=== PATIENT | female | born 1990 | race Caucasian/White ===

== ENCOUNTER 2018-09-30 07:26 | Emergency (ER) | payer BC ==
--- NOTE | 2018-09-30 07:46 | ERPHSYRPT ---
- History of Present Illness Time Seen by Provider: 09/30/18 07:40 Source: patient, family Exam Limitations: no limitations Physician History: 28 y/o obese white female 14 weeks presents with vaginal spotting this am with a single clot. pt seen by Dr. Moran yesterday. labs drawn. no ultrasound obtained. pt denies n/v/d. pt denies abd pain. pt denies cp and denies soa. Timing/Duration: today Activites at Onset: sexual activity (2 days ago) Quality: other (no pain) Pain Radiation: none Severity of Pain-Max: none Severity of Pain-Current: none Sexual intercourse history: non-contributory Modifying Factors: Improves With: nothing Associated Symptoms: vaginal discharge (spotting blood and clot) Allergies/Adverse Reactions: No Known Drug Allergies Allergy (Unverified 09/30/18 07:47) Home Medications: Vits W-Ca,Fe,FA(<1Mg) [] 1 each PO DAILY 09/30/18 [History] - Review of Systems Constitutional: No Symptoms Eyes: No Symptoms Ears, Nose, & Throat: No Symptoms Respiratory: No Symptoms Cardiac: No Symptoms Abdominal/Gastrointestinal: No Symptoms Genitourinary Symptoms: Vaginal Bleeding Musculoskeletal: No Symptoms Skin: No Symptoms Neurological: No Symptoms Psychological: No Symptoms Endocrine: No Symptoms Hematologic/Lymphatic: No Symptoms Immunological/Allergic: No Symptoms All Other Systems: Reviewed and Negative - Past Medical History Neurological History: No Pertinent History ENT History: No Pertinent History Cardiac History: No Pertinent History Respiratory History: No Pertinent History Endocrine Medical History: No Pertinent History Musculoskeletal History: No Pertinent History GI Medical History: No Pertinent History History: No Pertinent History Psycho-Social History: No Pertinent History Female Reproductive Disorders: No Pertinent History - Past Surgical History Neuro Surgical History: No Pertinent History Cardiac: No Pertinent History Respiratory: No Pertinent History Gastrointestinal: No Pertinent History Genitourinary: No Pertinent History Musculoskeletal: No Pertinent History Female Surgical History: No Pertinent History - Nursing Vital Signs Nursing Vital Signs: Initial Vital Signs Temperature 98.0 F 09/30/18 07:33 Pulse Rate 75 09/30/18 07:33 Respiratory Rate 20 09/30/18 07:33 Blood Pressure 127/70 09/30/18 07:33 O2 Sat by Pulse Oximetry 97 09/30/18 07:33 Pain Scale Pain Intensity 0 - Physical Exam General Appearance: no apparent distress, alert, anxiety Eye Exam: PERRL/EOMI, eyes nml inspection Ears, Nose, Throat Exam: normal ENT inspection, moist mucous membranes Neck Exam: normal inspection, non-tender, supple, full range of motion Respiratory Exam: normal breath sounds, lungs clear, airway intact, No chest tenderness, No respiratory distress Cardiovascular Exam: regular rate/rhythm, normal heart sounds, normal peripheral pulses Gastrointestinal/Abdomen Exam: soft, normal bowel sounds, other (fht 148), No tenderness Pelvic Exam: not done Rectal Exam: not done Extremity Exam: normal inspection, normal range of motion, pelvis stable Neurologic Exam: alert, oriented x 3, cooperative, letter of credit clerk II-XII nml as tested Skin Exam: normal color, warm, dry Lymphatic Exam: No adenopathy SpO2 Interpretation: normal O2 Delivery: Room Air Ordered Tests: Active Orders 24 hr Category Date Time Status Heart Tones-ED STAT Care 09/30/18 08:02 Active OB >14 WKS 1st GESTATION [US] Stat Exams 09/30/18 07:47 Completed CBC W DIFF Stat Lab 09/30/18 08:10 Completed CMP Stat Lab 09/30/18 08:10 Completed HCG, Quantitative (Inhouse) Stat Lab 09/30/18 08:10 Received UA W/RFX UR CULTURE Stat Lab 09/30/18 07:47 Uncollected Lab/Rad Data: Laboratory Result Diagrams 09/30/18 08:10 09/30/18 08:10 Laboratory Results 09/30/18 09/30/18 Range/Units 08:10 08:10 WBC 7.7 (4.0-10.5) K/mm3 RBC 4.49 (4.1-5.4) M/mm3 Hgb 9.9 L (12.0-16.0) gm/dl Hct 32.0 L (35-47) % MCV 71.3 L (78-100) fl MCH 22.0 L (26-32) pg MCHC 30.9 L (32-36) g/dl RDW 18.3 H (11.5-14.0) % Plt Count 259 (150-450) K/mm3 MPV 11.3 H (6-9.5) fl Gran % 74.2 H (36.0-66.0) % Eos # (Auto) 0.05 (0-0.5) Absolute Lymphs (auto) 1.43 (1.0-4.6) Absolute Monos (auto) 0.49 (0.0-1.3) Lymphocytes % 18.5 L (24.0-44.0) % Monocytes % 6.4 (0.0-12.0) % Eosinophils % 0.6 (0.00-5.0) % Basophils % 0.3 (0.0-0.4) % Absolute Granulocytes 5.72 (1.4-6.9) Basophils # 0.02 (0-0.4) Sodium 138 (137-145) mmol/L Potassium 3.8 (3.5-5.1) mmol/L Chloride 107 (98-107) mmol/L Carbon Dioxide 23 (22-30) mmol/L Anion Gap 12.2 (5-15) MEQ/L BUN 7 (7-17) mg/dL Creatinine 0.51 L (0.52-1.04) mg/dL Estimated GFR > 60.0 ML/MIN Glucose 91 (74-106) mg/dL Calcium 9.0 (8.4-10.2) mg/dL Total Bilirubin 0.30 (0.2-1.3) mg/dL AST 14 (14-36) U/L ALT 16 (0-35) U/L Alkaline Phosphatase 49 (38-126) U/L Serum Total Protein 7.2 (6.3-8.2) g/dL Albumin 3.8 (3.5-5.0) g/dL Slides for Path Review YES - Progress Progress: re-examined Air Movement: good Progress Note: 09/30/18 09:11 u/s-single live intrauterine fetus. 13 week 1 day gestation Counseled pt/family regarding: lab results, diagnosis, need for follow-up, rad results - Departure Departure Disposition: Home Clinical Impression: Vaginal bleeding during , UTI (urinary tract infection) Condition: Stable Critical Care Time: No Additional Instructions: drink plenty of fluids. follow up with ob doctor today. Prescriptions: Cephalexin Mh 500 mg [Keflex 500 mg] 500 mg PO TID #21 capsule
[2018-09-30 08:42] LABS: BASOPHIL % 0.3 % (0.0-0.4); Basophil (Absolute #) 0.02 (0-0.4); Eosinophil % 0.6 % (0.00-5.0); Eosinophil (Absolute #) 0.05 (0-0.5); Granulocyte Absolute (ANC) 5.72 (1.4-6.9); Granulocytes % 74.2 % (36.0-66.0); Hemoglobin 9.9 gm/dl (12.0-16.0); Lymphocyte (Absolute #) 1.43 (1.0-4.6); Lymphocytes % 18.5 % (24.0-44.0); Mean Cell Volume 71.3 fl (78-100); Mean Corpuscular Hgb Concent. 30.9 g/dl (32-36); Mean Platelet Volume 11.3 fl (6-9.5); Monocyte (Absolute #) 0.49 (0.0-1.3); Monocytes % 6.4 % (0.0-12.0); Platelet Count 259 K/mm3 (150-450); Red Blood Count 4.49 M/mm3 (4.1-5.4); Red Cell Distribution Width 18.3 % (11.5-14.0); White Blood Count 7.7 K/mm3 (4.0-10.5)
[2018-09-30 08:46] LABS: ALBUMIN 3.8 g/dL (3.5-5.0); ALKALINE PHOSPHATASE 49 U/L (38-126); ANION GAP 12.2 MEQ/L (5-15); BLOOD UREA NITROGEN 7 mg/dL (7-17); CHLORIDE 107 mmol/L (98-107); Carbon Dioxide 23 mmol/L (22-30); Creatinine 1 0.51 mg/dL (0.52-1.04); Glucose 91 mg/dL (74-106); Potassium 3.8 mmol/L (3.5-5.1); SGOT/AST 14 U/L (14-36); SGPT/ALT 16 U/L (0-35); SODIUM 138 mmol/L (137-145); Total Protein 7.2 g/dL (6.3-8.2)
--- NOTE | 2018-09-30 09:03 | XRAY ---
Indication: Vaginal bleeding. 14 weeks . Two-dimensional transabdominal early OB ultrasound performed. Comparison: None There is a single viable intrauterine with mean crown-rump length measuring 6.79 cm corresponding to 13 weeks 1 day. heart rate 155 BPM. Inferiorly there is a small 2.3 x 0.5 x 1.8 cm subchorionic hemorrhage near the os of the cervix. Left and right ovaries appear sonographically unremarkable. No suspicious adnexal mass or free fluid. Impression: Single viable intrauterine measuring 13 weeks 1 day. Expected date confinement is April 04, 2019. Small subchorionic hemorrhage as detailed.
[2018-09-30 09:23] LABS: Appearance CLEAR (CLEAR); Bilirubin NEGATIVE (NEGATIVE); Blood LARGE Ery/ul (0-5); Glucose NEGATIVE (NEGATIVE); Ketones NEGATIVE (NEGATIVE); Leukocyte Esterase TRACE (NEGATIVE); Nitrite NEGATIVE (NEGATIVE); Protein,Urine Dip NEGATIVE (Negative); Specific Gravity 1.004 (1.005-1.025); Urobilinogen NEGATIVE mg/dL (0-1)
[2018-09-30 09:26] LABS: Bacteria FEW /HPF (NEGATIVE)
[2018-09-30 09:28] VITALS: BP 120/74; PULSE 72; O2SAT 100
== END 2018-09-30 09:27 | disposition home or self-care (01) ==
LOC: ED 07:26
DX: O20.9 Hemorrhage in early pregnancy, unspecified (principal); Z3A.14 14 weeks gestation of pregnancy; O23.42 Unspecified infection of urinary tract in pregnancy, second trimester
CPT/HCPCS: 36415; 76805; 80053; 81001; 84702; 85025; 87086; 99284

== ENCOUNTER 2019-02-18 19:37 | Observation (INO) | payer BC ==
[2019-02-18 20:02] LABS: Appearance CLOUDY (CLEAR); Bacteria RARE /HPF (NEGATIVE); Bilirubin SMALL (NEGATIVE); Blood NEGATIVE Ery/ul (0-5); Epithelial Cells FEW /HPF (FEW); Glucose NEGATIVE (NEGATIVE); Ketones SMALL (NEGATIVE); Leukocyte Esterase LARGE (NEGATIVE); Mucus SLIGHT /HPF (NEGATIVE); Nitrite NEGATIVE (NEGATIVE); Protein,Urine Dip 30 (Negative); RBC 0-2 /HPF (0-2); Specific Gravity 1.031 (1.005-1.025); Urobilinogen 2 mg/dL (0-1); WBC 26-50 /HPF (0-5)
[2019-02-18 20:11] LABS: Amphetamine,Urine NEGATIVE (NEGATIVE); Barbiturate,Urine NEGATIVE (NEGATIVE); Benzodiazepine,Urine NEGATIVE (NEGATIVE); Cocaine,Urine NEGATIVE (NEGATIVE); Methadone,Urine NEGATIVE (NEGATIVE); Opiate,Urine NEGATIVE (NEGATIVE); PCP,Urine NEGATIVE (NEGATIVE); THC,Urine NEGATIVE (NEGATIVE)
[2019-02-18] MEDS ORDERED: Lactated Ringers 1,000 ML IV ONE (21:15)
[2019-02-18] MEDS: Lactated Ringers 1,000 ML IV SCH (21:35)
[2019-02-18 21:46] LABS: Absolute Neutrophil Ct (ANC) 7.55 (1.4-6.9); BASOPHIL % 0.2 % (0.0-0.4); Basophil (Absolute #) 0.02 (0-0.4); Eosinophil % 0.3 % (0.00-5.0); Eosinophil (Absolute #) 0.03 (0-0.5); Hematocrit 33.8 % (35-47); Hemoglobin 11.1 gm/dl (12.0-16.0); Lymphocyte (Absolute #) 0.77 (1.0-4.6); Lymphocytes % 8.7 % (24.0-44.0); Mean Cell Volume 86.9 fl (78-100); Mean Corpuscular Hemoglobin 28.5 pg (26-32); Mean Corpuscular Hgb Concent. 32.8 g/dl (32-36); Mean Platelet Volume 10.2 fl (6-9.5); Monocyte (Absolute #) 0.47 (0.0-1.3); Monocytes % 5.3 % (0.0-12.0); Neutrophil % 85.5 % (36.0-66.0); Platelet Count 204 K/mm3 (150-450); Red Blood Count 3.89 M/mm3 (4.1-5.4); Red Cell Distribution Width 14.3 % (11.5-14.0); White Blood Count 8.8 K/mm3 (4.0-10.5)
[2019-02-18 21:57] LABS: ALBUMIN 3.5 g/dL (3.5-5.0); ALKALINE PHOSPHATASE 87 U/L (38-126); ANION GAP 13.2 MEQ/L (5-15); BLOOD UREA NITROGEN 8 mg/dL (7-17); CHLORIDE 104 mmol/L (98-107); Calcium 9.3 mg/dL (8.4-10.2); Carbon Dioxide 22 mmol/L (22-30); Creatinine 1 0.38 mg/dL (0.52-1.04); Glucose 92 mg/dL (74-106); Potassium 3.7 mmol/L (3.5-5.1); SGOT/AST 21 U/L (14-36); SGPT/ALT 15 U/L (0-35); SODIUM 136 mmol/L (137-145); Total Protein 7.1 g/dL (6.3-8.2)
[2019-02-19] MEDS: Lactated Ringers 1,000 ML IV SCH (01:24)
[2019-02-19] MEDS ORDERED: TYLENOL 325 MG PO ONE (04:19)
[2019-02-19 10:08] VITALS: BP 119/74; PULSE 75; O2SAT 97
== END 2019-02-19 10:00 | disposition home or self-care (01) ==
LOC: OB 19:37
PROVIDERS: ADMIT Family Medicine; ATTEND Family Medicine
DX: Z34.03 Encounter for supervision of normal first pregnancy, third trimester (principal); R19.7 Diarrhea, unspecified
CPT/HCPCS: 36415; 80053; 80307; 81001; 85025; 87086; G0378; A9270-GY

== ENCOUNTER 2019-03-20 10:30 | Inpatient (IN) | payer BC ==
[2019-03-20 14:09] LABS: Amphetamine,Urine NEGATIVE (NEGATIVE); Barbiturate,Urine NEGATIVE (NEGATIVE); Benzodiazepine,Urine NEGATIVE (NEGATIVE); Cocaine,Urine NEGATIVE (NEGATIVE); Methadone,Urine NEGATIVE (NEGATIVE); Opiate,Urine NEGATIVE (NEGATIVE); PCP,Urine NEGATIVE (NEGATIVE); THC,Urine NEGATIVE (NEGATIVE)
[2019-03-20 14:18] LABS: Absolute Neutrophil Ct (ANC) 5.33 (1.4-6.9); BASOPHIL % 0.3 % (0.0-0.4); Basophil (Absolute #) 0.02 (0-0.4); Eosinophil % 1.1 % (0.00-5.0); Eosinophil (Absolute #) 0.08 (0-0.5); Hematocrit 33.7 % (35-47); Hemoglobin 10.9 gm/dl (12.0-16.0); Lymphocyte (Absolute #) 1.35 (1.0-4.6); Lymphocytes % 18.4 % (24.0-44.0); Mean Cell Volume 86.6 fl (78-100); Mean Corpuscular Hgb Concent. 32.3 g/dl (32-36); Mean Platelet Volume 10.8 fl (6-9.5); Monocyte (Absolute #) 0.54 (0.0-1.3); Monocytes % 7.4 % (0.0-12.0); Neutrophil % 72.8 % (36.0-66.0); Platelet Count 215 K/mm3 (150-450); Red Blood Count 3.89 M/mm3 (4.1-5.4); Red Cell Distribution Width 14.2 % (11.5-14.0); White Blood Count 7.3 K/mm3 (4.0-10.5)
[2019-03-20 14:29] LABS: ALBUMIN 3.2 g/dL (3.5-5.0); ALKALINE PHOSPHATASE 104 U/L (38-126); ANION GAP 9.1 MEQ/L (5-15); BLOOD UREA NITROGEN 5 mg/dL (7-17); CHLORIDE 108 mmol/L (98-107); Carbon Dioxide 25 mmol/L (22-30); Creatinine 1 0.44 mg/dL (0.52-1.04); Glucose 93 mg/dL (74-106); Potassium 4.2 mmol/L (3.5-5.1); SGOT/AST 20 U/L (14-36); SGPT/ALT 14 U/L (0-35); SODIUM 138 mmol/L (137-145); Total Protein 6.6 g/dL (6.3-8.2)
[2019-03-20] MEDS ORDERED: TRANDATE 20 MG/5 ML SYRINGE IV ONE (15:12)
[2019-03-20] MEDS ORDERED: Lactated Ringers 1,000 ML IV SCH ×2 (15:30→18:30)
[2019-03-20 16:22] LABS: INR 0.96 (0.8-3.0); PROTIME 10.8 SECONDS (9.95-12.35)
[2019-03-20 16:25] LABS: PTT 25.5 SECONDS (25.3-37.0)
[2019-03-20 16:32] LABS: Appearance CLEAR (CLEAR); Bilirubin NEGATIVE (NEGATIVE); Blood NEGATIVE Ery/ul (0-5); Glucose NEGATIVE (NEGATIVE); Ketones NEGATIVE (NEGATIVE); Leukocyte Esterase SMALL (NEGATIVE); Nitrite NEGATIVE (NEGATIVE); Protein,Urine Dip NEGATIVE (Negative); Specific Gravity 1.006 (1.005-1.025); Urobilinogen NEGATIVE mg/dL (0-1); WBC 0-2 /HPF (0-5)
[2019-03-20] MEDS: Magnesium Sulfate 40 Gm/1000 Ml H2O Premix*** 1,000 ML IV SCH (16:49)
[2019-03-20] MEDS ORDERED: Zofran 4 MG/2 ML VIAL IV PRN (18:05)
[2019-03-20] MEDS ORDERED: TYLENOL EXTRA STRENGTH 500 MG PO PRN (18:05)
[2019-03-20] MEDS ORDERED: OMNIPEN 2 GM / NACL 100ML 100 ML IV ONE (18:05)
[2019-03-20] MEDS ORDERED: BRETHINE 1 MG/ML SQ PRN (18:05)
[2019-03-20] MEDS ORDERED: PITOCIN 30 UNITS/ LR 500 ML 500 ML IV SCH ×2 (18:30)
[2019-03-20] MEDS ORDERED: TRANDATE 20 MG/5 ML SYRINGE IV PRN (19:30)
[2019-03-20] MEDS: OMNIPEN 1GM / NaCl 100ML 100 ML IV SCH (21:56)
[2019-03-20] MEDS ORDERED: OB EPIDURAL NAROPIN/SUFENTANIL IN NACL EPIDURAL PRN (22:30)
[2019-03-21] MEDS: OMNIPEN 1GM / NaCl 100ML 100 ML IV SCH (02:08)
[2019-03-21] MEDS ORDERED: XYLOCAINE 1% HCL 20 ML MDV ONE (03:39)
[2019-03-21] MEDS ORDERED: APRESOLINE 20 MG/ML INJ IV ONE ×2 (03:46→04:17)
[2019-03-21] MEDS ORDERED: MOTRIN 400 MG PO PRN (04:56)
[2019-03-21] MEDS ORDERED: CORTISONE 1% CREAM TP PRN (04:56)
[2019-03-21] MEDS ORDERED: NORCO 5/325 MG PO PRN (04:56)
[2019-03-21] MEDS ORDERED: Mylicon 80MG PO PRN (04:56)
[2019-03-21] MEDS ORDERED: LANSINOH 40 GM TOP PRN (04:56)
[2019-03-21] MEDS ORDERED: Dermoplast Spray TP PRN (04:56)
[2019-03-21] MEDS ORDERED: TUCKS TP PRN (04:56)
[2019-03-21] MEDS ORDERED: Anucort-HC SUPPOSITORY PR PRN (04:56)
[2019-03-21] MEDS ORDERED: Dulcolax 10 MG SUPP PR PRN (04:56)
[2019-03-21] MEDS ORDERED: TRANDATE 100 MG/20 ML MDV FOR DRIP IV PRN (07:15)
[2019-03-21] MEDS: FERREX 150 PO SCH (10:37)
[2019-03-21] MEDS: Colace 100 MG PO SCH ×2 (10:37→21:15)
[2019-03-21] MEDS: Magnesium Sulfate 40 Gm/1000 Ml H2O Premix*** 1,000 ML IV SCH (11:36)
[2019-03-21 14:32] VITALS: O2SAT 98
[2019-03-22 06:29] LABS: Absolute Neutrophil Ct (ANC) 5.16 (1.4-6.9); BASOPHIL % 0.4 % (0.0-0.4); Basophil (Absolute #) 0.03 (0-0.4); Eosinophil % 0.9 % (0.00-5.0); Eosinophil (Absolute #) 0.07 (0-0.5); Hemoglobin 8.5 gm/dl (12.0-16.0); Lymphocyte (Absolute #) 1.96 (1.0-4.6); Lymphocytes % 24.8 % (24.0-44.0); Mean Cell Volume 89.1 fl (78-100); Mean Corpuscular Hemoglobin 28.1 pg (26-32); Mean Corpuscular Hgb Concent. 31.5 g/dl (32-36); Mean Platelet Volume 11.1 fl (6-9.5); Monocyte (Absolute #) 0.68 (0.0-1.3); Monocytes % 8.6 % (0.0-12.0); Neutrophil % 65.3 % (36.0-66.0); Platelet Count 216 K/mm3 (150-450); Red Blood Count 3.03 M/mm3 (4.1-5.4); Red Cell Distribution Width 14.8 % (11.5-14.0); White Blood Count 7.9 K/mm3 (4.0-10.5)
[2019-03-22] MEDS: FERREX 150 PO SCH (09:35)
[2019-03-22] MEDS: Colace 100 MG PO SCH ×2 (09:35→21:13)
--- NOTE | 2019-03-23 09:33 | PCM.DS ---
Discharge Summary Date of Admission: 03/20/19 18:00 Admitting Physician: CHANI SWIFT Consults: Consults on Case 03/20/19 15:27 Notify Physician Primary Care Provider: CHANI SWIFT Allergies Allergies No Known Drug Allergies Allergy (Unverified 02/18/19 21:18) Hospital Summary - Hospital Course Hospital Course: Pt came in as 29 yo at 38w 4d after having elevated BP in office. Was found to have bp up to 180s systolic so was started on MgSO4 IV and labor was induced via AROM. FSE was placed by Dr. Henson after unsuccessful attempt by me. Clear fluid. Pt GBS +; ampicillin given IV. She delivered a 6lb 2oz female easily, , just prior to my arrival on the unit. Placental delivery without complication. Pt had a second degree vaginal laceration that was repaired. She has not been taking any pain meds. She was on magnesium x 24h after delivery; BP have all been under 160 systolic since. She has had some in the 140s-150s range, so I am starting her on nifedipine XL 30mg daily and plan to send her home later today. F/uw ith me in 1 week. - Vitals & Intake/Output Vital Signs: Vital Signs Temperature 97.6 F 03/23/19 08:00 Pulse Rate 75 03/23/19 08:00 Respiratory Rate 18 03/23/19 08:00 Blood Pressure 155/99 03/23/19 08:00 O2 Sat by Pulse Oximetry 98 03/22/19 02:00 Intake & Output: Intake & Output 03/20/19 03/21/19 03/22/19 03/23/19 11:59 11:59 11:59 11:59 Intake Total 100 1150 1940 Output Total 4125 1600 Balance 100 -2975 340 Weight 160.118 kg - Lab Result Diagrams: 03/22/19 05:15 03/20/19 14:16 - Procedures and Test Procedures and Tests throughout Hospitalization: Therapy Orders & Screens 03/21/19 03:45 Standby Routine Comment: Diagnosis: Elevated BP Discharge Exam General Appearance: no apparent distress, alert, obese Neurologic Exam: oriented x 3, cooperative, other (pat refl negligible bilat. No clonus.) Eye Exam: eyes nml inspection Ears, Nose, Throat Exam: moist mucous membranes Respiratory Exam: normal breath sounds, lungs clear, No crackles/rales, No rhonchi, No wheezing Cardiovascular Exam: regular rate/rhythm, normal heart sounds, No murmur Gastrointestinal/Abdomen Exam: soft, normal bowel sounds, other (fundus firm under umbilicus), No tenderness, No distention, No mass, No guarding, No rebound Back Exam: normal inspection, No rash Extremity Exam: normal inspection, No pedal edema, No swelling Skin Exam: normal color, warm, dry, No rash Final Diagnosis/Problem List - Final Discharge Diagnosis/Problem (1) Spontaneous vaginal delivery Current Visit: Yes Status: Acute Assessment & Plan: PPD #2, doing well, plan to d/c home today. Code(s): O80 - ENCOUNTER FOR FULL-TERM UNCOMPLICATED DELIVERY (2) Anemia Current Visit: Yes Status: Acute Assessment & Plan: home on iron. PP Hgb between 8-9. Code(s): D64.9 - ANEMIA, UNSPECIFIED (3) Severe pre-eclampsia Current Visit: Yes Status: Acute Assessment & Plan: She was asx the entire time. No complaints today. BP much better since delivery. Code(s): O14.10 - SEVERE PRE-ECLAMPSIA, UNSPECIFIED TRIMESTER - Discharge Disposition: Home, Self-Care Condition: Good Prescriptions: New Nifedipine Xl 30 mg [Adalat CC 30 MG TABLET] 30 mg PO DAILY #30 tablet.sa Ferrous Sulfate 325 mg [Feosol 325 mg] 325 mg PO DAILY #30 tablet Continue Vits W-Ca,Fe,FA(<1Mg) [] 1 each PO DAILY Instructions: Diet, Breast Care for the Woman, Pumping Breast Milk Additional Instructions: FOLLOW UP TO OB UNIT 2 DAYS AFTER DISCHARGE ON 03/25/18 FOR CHECK UP OF YOU AND . Follow up with: CHANI SWIFT [Primary Care Provider] - 1 Week (FOLLOW UP TO DR SWIFT APPOINTMENT FOR POST- BP CHECK UP ON Wednesday AT 11:15, ALSO HAS APPOINTMENT AT SAME TIME FOR FOLLOW UP. MAKE A 4-6 WEEK FOLLOW UP APPOINTMENT WITH DR SWIFT ) Forms: OB Discharge Instructions
[2019-03-23] MEDS: Colace 100 MG PO SCH (09:53)
[2019-03-23] MEDS: FERREX 150 PO SCH (09:54)
[2019-03-23] MEDS ORDERED: Adalat CC 30 MG TABLET PO SCH (10:00)
[2019-03-23 16:50] VITALS: BP 146/71; PULSE 73
== END 2019-03-23 15:35 | disposition home or self-care (01) | DRG 807 ==
LOC: OB 10:30 → OBSVTOIN 18:00
PROVIDERS: ADMIT Family Medicine; ATTEND Family Medicine
PROC: 10E0XZZ Delivery of Products of Conception, External Approach (ICD-10-PCS; principal; 2019-03-21)
DX: O14.14 Severe pre-eclampsia complicating childbirth (principal); Z37.0 Single live birth; O71.4 Obstetric high vaginal laceration alone; Z3A.38 38 weeks gestation of pregnancy
CPT/HCPCS: 36415; 80053; 80307; 81001; 81003; 83735; 84156; 84550; 85025; 85610; 85730; 94799; G0378; J0290; J0360; J2405; J2590; J2795; A9270-GY